=== PATIENT | male | born 2000 | race Caucasian/White ===

== ENCOUNTER 2021-04-09 16:50 | Emergency (ER) | payer OTHER ==
[~2021-04-09 16:50] MED LIST: LODINE CAP 300300 MG PO; NORCO 5-325 TA1 EACH PO
== END 2021-04-09 17:40 | disposition home or self-care (01) ==
LOC: ER1 16:50
DX: S93.402A Sprain of unspecified ligament of left ankle, initial encounter (principal); X50.9XXA Other and unspecified overexertion or strenuous movements or postures, initial encounter
CPT/HCPCS: 73600; 99283

== ENCOUNTER → 2021-04-23 | Outpatient (CLI) | payer BC | LOC: KOH-I 16:00 | DX: M25.572 Pain in left ankle and joints of left foot (principal); M25.472 Effusion, left ankle; S82.892A Other fracture of left lower leg, initial encounter for closed fracture; S93.412A Sprain of calcaneofibular ligament of left ankle, initial encounter; X50.1XXA Overexertion from prolonged static or awkward postures, initial encounter | CPT/HCPCS: 73721 ==

== ENCOUNTER → 2021-05-01 | Outpatient (CLI) | payer BC | LOC: KOH-I 15:10 | DX: S82.892A Other fracture of left lower leg, initial encounter for closed fracture (principal); M79.89 Other specified soft tissue disorders | CPT/HCPCS: 73610 ==